=== PATIENT | female | born 1950 | race Caucasian/White ===

== ENCOUNTER 2021-06-03 09:50 | Day surgery (SDC) | payer OTHER, SELFPAY ==
[2021-05-28 11:02] VITALS: BMI 38.2
--- NOTE | 2021-05-29 08:13 | MHC.SHP ---
Pre-Procedural Eval Section A Date of Service: 05/29/21 The patient is an INPATIENT: No Changes since office visit: No Cold of Flu in the past 2 weeks, No New Medical Problems, No Changes in Medication and No Patient answered all questions The History & Physical has been completed within 30 days and I have reviewed it.: Yes Section B Chief Complaint: cataract Allergies: Allergies Allergy/AdvReac Type Severity Reaction Status Date / Time oxycodone [From Percocet] Allergy Unknown Nausea and Verified 05/28/21 10:56 Vomiting Plan Diagnosis/Plan: Unchanged I have reviewed the history and physical and performed a pertinent physical examination on my patient. No changes have occurred unless specified.
[2021-06-03 11:00] VITALS: BP 145/86; PULSE 90; RESP 18; TEMP 36.8; O2SAT 98
[2021-06-03] MEDS: Lactated Ringers 500 ML 20 ML IVCONT (11:27)
[2021-06-03] MEDS: Tetracaine HCl/PF 0.5% Oph Sol 4 ML DROPS 1 DROP EYE-RIGHT (11:27)
[2021-06-03] MEDS: Tropicamide 1 % Ophth Sol 3 ML BTL 1 DROP EYE-RIGHT ×3 (11:28→11:33)
[2021-06-03] MEDS: Phenylephrine HCL 2.5% Oph SoL 2 ML BOTTLE 1 DROP EYE-RIGHT ×3 (11:30→11:35)
--- NOTE | 2021-06-03 11:37 | P.CONAN_ITS ---
[facility] Active Problems Active Problems: All Active Problems (Updated 05/28/21 @ 10:58 by Krista sun RN) Cellulitis (Acute) Past Medical History Medical History Asthma DM type 2 (diabetes mellitus, type 2) HTN (hypertension) Hyperlipidemia Migraines PONV (postoperative nausea and vomiting) Family History Family history of problems with anesthesia: No Surgical History Surgical History History of open reduction and internal fixation (ORIF) procedure Hx of colonoscopy History of Problems with Anesthesia: No Social History Social History Are you a primary childcare director to a significant other at home: No Do you presently have visiting nurse or other home services: No Patient Tobacco Use Status: Former Tobacco user Quit Date: 20 yrs ago Tobacco use type: Cigarette Second Hand Smoke Exposure: No Use of substances other than those prescribed or required for medical reasons: No Have you been hit, kicked, punched, or otherwise hurt by someone within the past year? If so, by whom?: No Are you DNR?: No Advance Directives: No Advance Directives Information Provided: No Advance Directives on File: No Recently lost weight without trying: No Eating poorly because of decreased appetite: No Nutrition Risks: No Nutritional Risk Patient : No Meds Allergies Allergy/AdvReac Type Severity Reaction Status Date / Time erythromycin base Allergy Mild Nausea and Verified 06/03/21 11:19 Vomiting oxycodone [From Percocet] Allergy Unknown Nausea and Verified 05/28/21 10:56 Vomiting Active Medications: Current Medications Lactated Ringer's (Lr) 500 mls @ 20 mls/hr IVCONT .Q24H MABEL Last Admin: 06/03/21 11:27 Dose: 20 mls/hr Documented by: Povidone Iodine (Povidone Iodine 5 % Ophth Soln 30 Ml Bottle) 1 appl EYE-RIGHT PREOP PRN PRN Reason: Pre-Op Surgical Implant Prophy Home Medications Medication Instructions Recorded Confirmed Last Taken Type amitriptyline 10 mg tablet 10 mg PO BEDTIME 10/02/20 05/28/21 Unknown History amlodipine 5 mg tablet 5 mg PO BEDTIME 10/02/20 05/28/21 Unknown History aspirin 81 mg tablet,delayed 81 mg PO BEDTIME 10/02/20 05/28/21 06/02/21 History release (Adult Low Dose Aspirin) atorvastatin 10 mg tablet 10 mg PO DAILY 10/02/20 05/28/21 Unknown History fluticasone 100 mcg-salmeterol 50 1 ea INHALATION DAILY 10/02/20 05/28/21 06/03/21 History mcg/dose blistr powdr for inhalation glipizide 2.5 mg tablet, extended 2.5 mg PO 10/02/20 Unknown History release 24 hr lisinopril 20 1 tab PO DAILY 10/02/20 05/28/21 Unknown History mg-hydrochlorothiazide 12.5 mg tablet metformin 500 mg tablet 0 mg PO 10/02/20 Unknown History albuterol sulfate 90 mcg/actuation 2 puff INHALATION Q4-6H PRN 05/28/21 05/28/21 Unknown History aerosol inhaler fluticasone propionate 50 1 spray INTRANASAL DAILY 05/28/21 05/28/21 Unknown History mcg/actuation nasal spray,suspension Exam Exam Date and Time: June 03, 2021 1137 Height,Weight and Vital Signs: Height 5 ft 5 in Weight 104.326 kg Last Vital Signs Temp 98.3 F 06/03/21 11:00 Pulse 90 06/03/21 11:00 Resp 18 06/03/21 11:00 BP 145/86 H 06/03/21 11:00 Pulse Ox 98 06/03/21 11:00 Airway Mallampati Class: II TM Dist: >3cm Neck ROM: Limited Assessment and Plan Assessment Anesthesia Assessment: Anesthesia Plan Discussed and Chart Reviewed Final Anesthetic Review Family History of Problems with Anesthesia: No History of Problems with Anesthesia: No NPO: Yes ASA Class: III Final Preanesthetic Review: No Changes in Pt Med Stat, Meds/Allgs Chart Reviewed, Consent Obtained/Reviewed and Anes Risks/Benef Reviewed Patient Risk: Intermediate Procedure Risk: Low Assessment/Block/Sedation in SS: Assess/Block/Sedation-SS Anesthetic Plan Anesthetic Plan: MAC: Disposition: Standard PACU
[2021-06-03 11:46] LABS: Glucose, Whole Blood 158 mg/dL (60-115)
--- NOTE | 2021-06-03 12:11 | HO.PNOPHT ---
Ophthalmology Procedure Procedure Date of Service: 06/03/21 Ophthalmology Viscoelastic: Healon Duet Dual Pack Pro Ophthalmology Lenses: TECNIS [id number] (18.5) Procedure Notes: PREOPERATIVE DIAGNOSIS: Decreased visual acuity right eye secondary to cataract POSTOPERATIVE DIAGNOSIS: Same PROCEDURE: Right cataract extraction with intraocular lens insertion SURGEON: Eduardo Au M.D. ANESTHESIA: Topical/MAC ESTIMATED BLOOD LOSS: None COMPLICATIONS: None After obtaining informed consent, the patient was brought to the operating room suite and placed in the supine position. After adequate sedation per anesthesia, topical drops of Tetracaine were given to the right eye. The eye was then prepped and draped in the usual sterile fashion. The operating room microscope was then positioned over the operative eye and a lid speculum placed. A paracentesis was created. Viscoelastic was then instilled into the anterior chamber. A three plane incision was then created temporally, utilizing a 2.85 mm keratome. Capsulotomy forceps were then utilized to create a circular tear capsulotomy. Hydrodissection and hydrodelineation were carried out until adequate mobilization of the nucleus occurred. Phacoemulsification was then utilized to remove the dense central nucleus followed by removal of the cortical material utilizing the automated aspiration irrigation unit. Viscoelastic was instilled into the posterior capsular bag followed by placement of a posterior chamber intraocular lens without difficulty. The residual Viscoelastic was then removed utilizing the automated IA machine. The wound was checked and found to be watertight. The patient tolerated the procedure well and the lid speculum was removed. Intracameral injection of Vigamox 0.1 mL followed by a subtenon injection of Kenalog-40 0.2 mL were administered. The patient will be seen in the a.m.
[2021-06-03] MEDS: ondansetron HCL 4 MG/2 ML VIAL IVPUSH (12:37)
[2021-06-03 12:38] VITALS: BP 150/86; PULSE 90; RESP 20; TEMP 36.3; O2SAT 98
[2021-06-03 13:33] VITALS: BP 129/72; PULSE 81; RESP 20; O2SAT 98
[2021-06-03 14:21] VITALS: BP 124/68; PULSE 80; RESP 18; O2SAT 99
[2021-06-03 15:21] VITALS: BP 135/86; PULSE 82; RESP 18; TEMP 36.9; O2SAT 96
== END 2021-06-03 15:55 | disposition home or self-care (01) ==
PROVIDERS: PCP Family Medicine; Visit Provider Ophthalmology
PROC: (CPT 66985; principal; 2021-06-03 12:40)
DX: H25.11 Age-related nuclear cataract, right eye (principal); H52.4 Presbyopia; I10 Essential (primary) hypertension; E11.9 Type 2 diabetes mellitus without complications; J45.909 Unspecified asthma, uncomplicated; Z79.51 Long term (current) use of inhaled steroids; Z79.82 Long term (current) use of aspirin; Z79.84 Long term (current) use of oral hypoglycemic drugs; Z79.899 Other long term (current) drug therapy; Z87.891 Personal history of nicotine dependence
CPT/HCPCS: 66984; 82947; J2405; J2550; J3010; J3300; V2632

== ENCOUNTER 2021-06-17 07:15 | Day surgery (SDC) | payer OTHER, SELFPAY ==
[2021-05-28 11:16] VITALS: BMI 38.2
--- NOTE | 2021-06-12 12:57 | MHC.SHP ---
Pre-Procedural Eval Section A Date of Service: 06/12/21 The patient is an INPATIENT: No Changes since office visit: No Cold of Flu in the past 2 weeks, No New Medical Problems, No Changes in Medication and No Patient answered all questions The History & Physical has been completed within 30 days and I have reviewed it.: Yes Section B Chief Complaint: cataract Allergies: Allergies Allergy/AdvReac Type Severity Reaction Status Date / Time erythromycin base Allergy Mild Nausea and Verified 06/03/21 11:19 Vomiting oxycodone [From Percocet] Allergy Unknown Nausea and Verified 05/28/21 10:56 Vomiting Plan Diagnosis/Plan: Unchanged I have reviewed the history and physical and performed a pertinent physical examination on my patient. No changes have occurred unless specified.
--- NOTE | 2021-06-14 09:43 | HO.ANESPROP2 ---
Documented by User: Bettina Hamilton NP 06/14/21 10:07 HPI - Anesthesia Eval Consult details Narrative: 70yo F for Left Cataract Extraction IOL Insertion PCP cleared Right eye 06/03/21 with MAC: Fent 50 PMFSH Active Problems Active Problems: All Active Problems (Updated 05/28/21 @ 10:58 by Krista Ansari RN) Cellulitis (Acute) Past Medical History Medical History Asthma DM type 2 (diabetes mellitus, type 2) HTN (hypertension) Hyperlipidemia Migraines PONV (postoperative nausea and vomiting) Family History Family history of problems with anesthesia: No Surgical History Surgical History History of open reduction and internal fixation (ORIF) procedure Hx of colonoscopy History of Problems with Anesthesia: No Social History Social History Are you a primary transitional care nurse to a significant other at home: No Do you presently have visiting nurse or other home services: No Patient Tobacco Use Status: Former Tobacco user Quit Date: 20 yrs ago Tobacco use type: Cigarette Second Hand Smoke Exposure: No Use of substances other than those prescribed or required for medical reasons: No Have you been hit, kicked, punched, or otherwise hurt by someone within the past year? If so, by whom?: No Are you DNR?: No Advance Directives: No Advance Directives Information Provided: No Advance Directives on File: No Recently lost weight without trying: No Eating poorly because of decreased appetite: No Nutrition Risks: No Nutritional Risk Meds Allergies Allergy/AdvReac Type Severity Reaction Status Date / Time erythromycin base Allergy Mild Nausea and Verified 06/03/21 11:19 Vomiting oxycodone [From Percocet] Allergy Unknown Nausea and Verified 05/28/21 10:56 Vomiting Home Medications Medication Instructions Recorded Confirmed Last Taken Type amitriptyline 10 mg tablet 10 mg PO BEDTIME 10/02/20 05/28/21 Unknown History amlodipine 5 mg tablet 5 mg PO BEDTIME 10/02/20 05/28/21 Unknown History aspirin 81 mg tablet,delayed 81 mg PO BEDTIME 10/02/20 05/28/21 06/02/21 History release (Adult Low Dose Aspirin) atorvastatin 10 mg tablet 10 mg PO DAILY 10/02/20 05/28/21 Unknown History fluticasone 100 mcg-salmeterol 50 1 ea INHALATION DAILY 10/02/20 05/28/21 06/03/21 History mcg/dose blistr powdr for inhalation glipizide 2.5 mg tablet, extended 2.5 mg PO 10/02/20 Unknown History release 24 hr lisinopril 20 1 tab PO DAILY 10/02/20 05/28/21 Unknown History mg-hydrochlorothiazide 12.5 mg tablet metformin 500 mg tablet 0 mg PO 10/02/20 Unknown History albuterol sulfate 90 mcg/actuation 2 puff INHALATION Q4-6H PRN 05/28/21 05/28/21 Unknown History aerosol inhaler fluticasone propionate 50 1 spray INTRANASAL DAILY 05/28/21 05/28/21 Unknown History mcg/actuation nasal spray,suspension Exam Exam Date and Time: June 14, 2021 0943 Height,Weight and Vital Signs: Height 5 ft 5 in Weight 104.326 kg Assessment and Plan Assessment Anesthesia Assessment: Chart Reviewed Final Anesthetic Review Family History of Problems with Anesthesia: No History of Problems with Anesthesia: No Documented by User: Doc Garcia MD 06/17/21 07:50 [facility] Past Medical History Medical History Asthma DM type 2 (diabetes mellitus, type 2) HTN (hypertension) Hyperlipidemia Migraines PONV (postoperative nausea and vomiting) Surgical History Surgical History History of open reduction and internal fixation (ORIF) procedure Hx of colonoscopy Social History Social History Are you a primary transitional care nurse to a significant other at home: No Do you presently have visiting nurse or other home services: No Patient Tobacco Use Status: Former Tobacco user Quit Date: 20 yrs ago Tobacco use type: Cigarette Second Hand Smoke Exposure: No Use of substances other than those prescribed or required for medical reasons: No Have you been hit, kicked, punched, or otherwise hurt by someone within the past year? If so, by whom?: No Are you DNR?: No Advance Directives: No Advance Directives Information Provided: No Advance Directives on File: No Recently lost weight without trying: No Eating poorly because of decreased appetite: No Nutrition Risks: No Nutritional Risk Meds Allergies Allergy/AdvReac Type Severity Reaction Status Date / Time erythromycin base Allergy Mild Nausea and Verified 06/03/21 11:19 Vomiting oxycodone [From Percocet] Allergy Unknown Nausea and Verified 05/28/21 10:56 Vomiting Home Medications Medication Instructions Recorded Confirmed Last Taken Type amitriptyline 10 mg tablet 10 mg PO BEDTIME 10/02/20 05/28/21 Unknown History amlodipine 5 mg tablet 5 mg PO BEDTIME 10/02/20 05/28/21 Unknown History aspirin 81 mg tablet,delayed 81 mg PO BEDTIME 10/02/20 05/28/21 06/02/21 History release (Adult Low Dose Aspirin) atorvastatin 10 mg tablet 10 mg PO DAILY 10/02/20 05/28/21 Unknown History fluticasone 100 mcg-salmeterol 50 1 ea INHALATION DAILY 10/02/20 05/28/21 06/03/21 History mcg/dose blistr powdr for inhalation glipizide 2.5 mg tablet, extended 2.5 mg PO 10/02/20 Unknown History release 24 hr lisinopril 20 1 tab PO DAILY 10/02/20 05/28/21 Unknown History mg-hydrochlorothiazide 12.5 mg tablet metformin 500 mg tablet 0 mg PO 10/02/20 Unknown History albuterol sulfate 90 mcg/actuation 2 puff INHALATION Q4-6H PRN 05/28/21 05/28/21 Unknown History aerosol inhaler fluticasone propionate 50 1 spray INTRANASAL DAILY 05/28/21 05/28/21 Unknown History mcg/actuation nasal spray,suspension Exam Airway Mallampati Class: III TM Dist: >3cm Neck ROM: Full Loose/Missing/Broken Teeth: Yes (lower temporary cemented in) Heart: [id number] Lungs: cta b/l Assessment and Plan Final Anesthetic Review NPO: Yes ASA Class: III Final Preanesthetic Review: No Changes in Pt Med Stat, Meds/Allgs Chart Reviewed, Consent Obtained/Reviewed and Anes Risks/Benef Reviewed Patient Risk: Intermediate Procedure Risk: Low Assessment/Block/Sedation in SS: Assess/Block/Sedation-SS Anesthetic Plan Anesthetic Plan: MAC: and Agree w/ Assess. and Plan Disposition: Standard PACU
[2021-06-17 07:41] VITALS: BP 130/95; PULSE 90; RESP 18; TEMP 36.1; O2SAT 99
[2021-06-17 08:00] LABS: Glucose, Whole Blood 181 mg/dL (60-115)
[2021-06-17] MEDS: Tetracaine HCl/PF 0.5% Oph Sol 4 ML DROPS 1 DROP EYE-LEFT (08:00)
[2021-06-17] MEDS: Lactated Ringers 500 ML 50 ML IV (08:00)
[2021-06-17] MEDS: Tropicamide 1 % Ophth Sol 3 ML BTL 1 DROP EYE-LEFT ×3 (08:02→08:08)
[2021-06-17] MEDS: Phenylephrine HCL 2.5% Oph SoL 2 ML BOTTLE 1 DROP EYE-LEFT ×3 (08:04→08:10)
--- NOTE | 2021-06-17 08:40 | HO.PNOPHT ---
Ophthalmology Procedure Procedure Date of Service: 06/17/21 Ophthalmology Viscoelastic: Healon Duet Dual Pack Pro Ophthalmology Lenses: TECSELAM [id number] (18) Procedure Notes: PREOPERATIVE DIAGNOSIS: Decreased visual acuity left eye secondary to cataract POSTOPERATIVE DIAGNOSIS: Same PROCEDURE: Left cataract extraction with intraocular lens insertion SURGEON: Eduardo Au M.D. ANESTHESIA: Topical/MAC ESTIMATED BLOOD LOSS: None COMPLICATIONS: None After obtaining informed consent, the patient was brought to the operation room suite and placed in the supine position. After adequate sedation per anesthesia, topical drops of Tetracaine were given to the left eye. The eye was then prepped and draped in the usual sterile fashion. The operating room microscope was then positioned over the operative eye and a lid speculum placed. A paracentesis was created. Viscoelastic was then instilled into the anterior chamber. A three plane incision was then created temporally, utilizing a 2.85 mm keratome. Capsulotomy forceps were then utilized to create a circular tear capsulotomy. Hydrodissection and hydrodelineation were carried out until adequate mobilization of the nucleus occurred. Phacoemulsification was then utilized to remove the dense central nucleus followed by removal of the cortical material utilizing the automated aspiration irrigation unit. Viscoat elastic was instilled into the posterior capsular bag followed by placement of a posterior chamber intraocular lens without difficulty. The residual Viscoat elastic was then removed utilizing the automated IA machine. The wound was check and found to be watertight. The patient tolerated the procedure well and the lid speculum was removed. Intracameral injection of Vigamox 0.1 mL followed by a subtenon injection of Kenalog-40 0.2 mL were administered. The patient will be seen in the a.m.
[2021-06-17 09:04] VITALS: BP 141/94; PULSE 91; RESP 16; TEMP 37; O2SAT 96
== END 2021-06-17 09:21 | disposition home or self-care (01) ==
PROVIDERS: PCP Family Medicine; Visit Provider Ophthalmology
PROC: (CPT 66985; principal; 2021-06-17 09:10)
DX: H25.12 Age-related nuclear cataract, left eye (principal); H52.4 Presbyopia; I10 Essential (primary) hypertension; E11.9 Type 2 diabetes mellitus without complications; J45.909 Unspecified asthma, uncomplicated; Z79.51 Long term (current) use of inhaled steroids; Z79.84 Long term (current) use of oral hypoglycemic drugs; Z79.82 Long term (current) use of aspirin; Z79.899 Other long term (current) drug therapy; Z87.891 Personal history of nicotine dependence
CPT/HCPCS: 66984; 82947; J2250; J3300; V2632

== ENCOUNTER 2024-03-04 10:58 | Outpatient (AMB) | payer MEDICARE, SELFPAY ==
[2024-03-04 12:00] VITALS: BP 128/80; PULSE 80; TEMP 36.6; O2SAT 98; BMI 39.1
--- NOTE | 2024-03-04 12:00 | AM.OFFWIN_ITS ---
Intake Vital Signs 03/04/24 12:00 Height 5 ft 5 in Weight 235 lb BMI 39.1 BP 128/80 Blood Pressure Location Rt brachial Position Sitting Pulse 80 Pulse Source Pulse Oximeter Temp 98 F Temp Source Oral Pulse Oximetry (%) 98 Intake Visit Reasons: EP lft foot/toe swollen cellulitis??? Intake Note: pt is here for left foot and toe swelling, possible cellulitis Patient Tobacco Use Status: Former Tobacco user Allergies erythromycin base Allergy (Mild, Verified 03/04/24 12:01) Nausea and Vomiting oxycodone [From Percocet] Allergy (Unknown, Verified 03/04/24 12:01) Nausea and Vomiting Do you need a note to return to daycare/school/sports/work: No HPI HPI Comments History of Present Illness Details 73 y/o female patient who presents to [facility] [place] in clinic with c/o bilateral lower extremity edema with redness. Reports the left leg more swollen and red compared to right leg. Reports noticing the redness ~ 1 day ago. [facility] Medical History Asthma DM type 2 (diabetes mellitus, type 2) HTN (hypertension) Hyperlipidemia Migraines PONV (postoperative nausea and vomiting) Surgical History History of open reduction and internal fixation (ORIF) procedure Hx of colonoscopy Social History Are you a primary healthcare insurance sales agent to a significant other at home: No Do you presently have visiting nurse or other home services: No Patient Tobacco Use Status: Former Tobacco user Tobacco use type: Cigarette Second Hand Smoke Exposure: No Review of Systems Const All systems reviewed & are unremarkable except as noted in HPI and below Physical Exam Vital Signs: Last Vital Signs Temp 98 F 03/04/24 12:00 Pulse 80 03/04/24 12:00 BP 128/80 03/04/24 12:00 Pulse Ox 98 03/04/24 12:00 BMI result Body Mass Index 39.1 Const General: comfortable and no acute distress Orientation/consciousness: patient oriented x3 Skin General skin exam: dry skin Lesions: no lesions Rashes: no rashes Neuro General: patient oriented x3, gait normal and moves all extremities Extrem Right lower extremity: edema and lower leg Details: erythema (left lower foot) Location: of the distal lower leg, pitting edema Details: 1+ and warmth Left lower extremity: edema and lower leg Details: erythema, tenderness, pitting edema Details: 1+ and warmth Psych Speech and movement: Normal speech and movement present Assessment & Plan Assessment & Plan (1) Peripheral edema: Code(s): R60.0 - Localized edema Plan: Ordered Keflex F/U with PCP regarding Edema. Medications: New cephalexin 500 mg PO BID 7 days 14 caps 0RF R60.0 - Localized edema Coding Level of Care Code Est Pt Level 3 (36364) Diagnoses Peripheral edema R60.0 Time Spent (min) 15
== END 2024-03-04 12:39 | disposition home or self-care (01) ==
PROVIDERS: PCP Family Medicine; Visit Provider Nurse Practitioner Family
DX: R60.0 Localized edema (principal)
CPT/HCPCS: 99213

== ENCOUNTER 2024-03-07 13:15 | Inpatient (IN) | payer MEDICARE, SELFPAY ==
--- NOTE | ~2024-03-07 | XR_ITS ---
EXAMINATION: XR FOOT, LEFT CLINICAL INFORMATION: Pain and swelling status-post fall COMPARISON: None available. TECHNIQUE: AP, lateral, and oblique views of the left foot. FINDINGS: There is bony demineralization. No fracture, dislocation or left ankle joint effusion is seen. There are degenerative changes of the dorsal midfoot. Boehler's angle is normal. There are small posterior and moderate plantar calcaneal spurs. Orthopedic plate and screws are applied to the lateral malleolus. There is soft tissue swelling of the ankle, most pronounced laterally. XR/XR foot LT min 3V IMPRESSION: 1. No acute fracture, dislocation or left ankle joint effusion is seen. 2. There is generalized soft tissue swelling, most pronounced laterally. 3. Orthopedic hardware is applied to the fibula.
--- NOTE | ~2024-03-07 | US_ITS ---
EXAMINATION: US VENOUS ULTRASOUND WITH DOPPLER LOWER EXTREMITY, LEFT CLINICAL INFORMATION: Edema, rule out DVT COMPARISON: None available. TECHNIQUE: Ultrasound of the deep veins is performed from the hip to the calf with compression sonography and color and pulse Doppler assessment. Spectral analysis with color-flow imaging is performed. FINDINGS: There is normal venous compression and respiratory variation and augmented flow. The visualized common femoral vein, superficial femoral vein, profunda femoral vein, popliteal vein, and the trifurcation region shows no evidence of deep venous thrombosis. There is no significant popliteal fossa cyst. If the patient's symptoms persist, followup ultrasound in 5 days 7 days might be of value to exclude proximal propagation from a non-visualized calf vein. US/US venous duplex LE LT IMPRESSION: No DVT demonstrated in the left lower extremity.
[2024-03-07 13:57] VITALS: BP 147/69; PULSE 113; RESP 18; TEMP 37.1; O2SAT 96; BMI 39.4
[2024-03-07 14:13] LABS: MANUAL DIFF FLAG NO
[2024-03-07 14:25] LABS: Basophils Absolute Auto 0.1 X10*3/uL (0.0-0.2); Basophils Percent Auto 1.1 % (0-2); Eosinophils Absolute Auto 0.2 X10*3/uL (0.0-0.4); Eosinophils Percent Auto 2.2 % (0-4); Hematocrit 38.5 % (37.0-47.0); Hemoglobin 13.2 g/dl (12.0-16.0); Imm Gran Abs Auto 0.02 X10*3/uL (0.00-0.03); Imm Gran Pct Auto 0.2 % (0.0-0.4); Lymphocytes Absolute Auto 2.8 X10*3/uL (1.2-4.9); Lymphocytes Percent Auto 29.4 % (20-40); Mean Corpuscular HGB Conc 34.3 g/dl (31.0-35.0); Mean Corpuscular Hemoglobin 28.1 pg (27.0-33.0); Mean Corpuscular Volume 82.1 fL (80.0-98.0); Mean Platelet Volume 9.8 fL (9.4-12.3); Monocytes Percent Auto 10.5 % (2-11); Neutrophils Absolute Auto 5.3 x10*3/uL (2.0-8.3); Neutrophils Percent Auto 56.6 % (45-73); Platelet Count 275 X10*3/uL (160-400); Red Blood Count 4.69 X10*6/uL (4.20-5.50); Red Cell Distribution Width 13.3 % (11.0-16.0); White Blood Count 9.4 X10*3/uL (4.8-10.8)
[2024-03-07 14:31] LABS: Alanine Aminotransferase 33 U/L (0-31); Albumin Level 4.3 g/dL (3.5-5.0); Alkaline Phosphatase 68 U/L (39-117); Anion Gap 17 (12-20); Aspartate Amino Transferase 20 U/L (5-31); Bilirubin Total 0.3 mg/dL (0.0-1.0); Blood Urea Nitrogen 18 mg/dL (9-16); Calcium 9.7 mg/dL (8.4-10.2); Carbon Dioxide 23 mmol/L (22-29); Chloride 103 mmol/L (96-108); Creatinine Clr Calc Pharmacy 64.1; Estimated Glomerular Filt Rate 56; Glucose Random 281 mg/dL (60-115); Potassium 4.3 mmol/L (3.3-5.1); Sodium 139 mmol/L (135-145); Total Protein 7.1 g/dL (6.5-8.0)
[2024-03-07 14:49] LABS: Lactic Acid 3.9 mmol/L (0.5-2.0)
[2024-03-07 16:11] LABS: Reflex Lactate? Lactic Acid Added
--- NOTE | 2024-03-07 19:25 | PC.NURSE ---
pt called to come back to the ed due to Lactic acid 3.9 hr 113 with a infected toe. no answer message left to call back and or return back to the ed.
--- NOTE | 2024-03-07 19:44 | PC.NURSE ---
pt called back and she will return to the ed tonight. pt instructed to let the reg know she has arrived.
--- NOTE | 2024-03-07 21:20 | ED_ITS ---
HPI - General Adult General Chief complaint: General Medical Stated complaint: L toe red/swollen Time Seen by Provider: 03/07/24 21:15 Source: patient Mode of arrival: ambulatory Limitations: no limitations History of Present Illness ED Provider: krsital HOLMAN narrative: Patient diabetic came here for left great toe swelling and redness for last 4 days after she hit the toe in the tub, on Keflex started 3 days ago for last 2 days redness has spread o the lower part of the leg with warmth feeling patient with diabetic with HbA1c about 9.0 on oral hypoglycemic no open wound no fever no chills patient otherwise feels normal does have history of recurrent cellulitis Related Data Home Medications ?Medication ?Instructions ?Recorded ?Confirmed amitriptyline 10 mg tablet 10 mg PO BEDTIME 10/02/20 05/28/21 amlodipine 5 mg tablet 5 mg PO BEDTIME 10/02/20 05/28/21 aspirin 81 mg tablet,delayed 81 mg PO BEDTIME 10/02/20 05/28/21 release (Adult Low Dose Aspirin) atorvastatin 10 mg tablet 10 mg PO DAILY 10/02/20 05/28/21 fluticasone 100 mcg-salmeterol 50 1 ea inhalation DAILY 10/02/20 05/28/21 mcg/dose blistr powdr for inhalation lisinopril 20 1 tab PO DAILY 10/02/20 05/28/21 mg-hydrochlorothiazide 12.5 mg tablet metformin 500 mg tablet 0 mg PO 10/02/20 albuterol sulfate 90 mcg/actuation 2 puff inhalation Q4-6H PRN 05/28/21 05/28/21 aerosol inhaler Wheezing fluticasone propionate 50 1 spray intranasal DAILY 05/28/21 05/28/21 mcg/actuation nasal spray,suspension glipizide 5 mg tablet, extended mg PO BID 03/04/24 release 24 hr Previous Rx's ?Medication ?Instructions ?Recorded cephalexin 500 mg capsule 500 mg PO BID 7 days #14 caps 03/04/24 Allergies Allergy/AdvReac Type Severity Reaction Status Date / Time erythromycin base Allergy Mild Nausea and Verified 03/07/24 14:00 Vomiting oxycodone [From Percocet] Allergy Unknown Nausea and Verified 03/07/24 14:00 Vomiting Review of Systems 2 Review of Systems: Yes all other systems are reviewed and are negative PMFSH Past Medical History Medical History PONV (postoperative nausea and vomiting) DM type 2 (diabetes mellitus, type 2) Migraines Asthma HTN (hypertension) Hyperlipidemia Surgical History Hx of colonoscopy History of open reduction and internal fixation (ORIF) procedure Social History Social History Are you a primary primary care pediatrician to a significant other at home: No Do you presently have visiting nurse or other home services: No Alcohol intake: former Patient Tobacco Use Status: Former Tobacco user Tobacco use type: Cigarette Smoked in Last 30 Days: No Second Hand Smoke Exposure: No Use of substances other than those prescribed or required for medical reasons: No Advance Directives: No Advance Directives Information Provided: No Do you have a plan to hurt others: No Plan Physical Exam ED Vital Signs: Vital Signs - 24 hr 03/07/24 13:57 03/07/24 22:14 Temperature 98.7 F 98.8 F Pulse Rate 113 H 96 Respiratory Rate 18 17 Blood Pressure 147/69 H 137/82 Pulse Oximetry 96 98 Oxygen Delivery Method Room Air Room Air BMI result Body Mass Index 39.4 Appearance: Alert. Oriented X3. No acute distress. Eyes: PERRLA, No Nystagmus ENT: Pharynx normal. Oral Mucosa moist Neck: Normal inspection. Neck supple. CVS: Normal heart rate and rhythm. Pulses normal. Respiratory: No respiratory distress. Equal air entry bilateral, no wheezing/rales/rhonchi Abdomen: Soft and nontender. Bowel sounds are present, no mass palpable, no CVA tenderness Skin: Skin warm and dry. Normal skin color. Normal skin turgor. Extremities: No lower extremity edema. No calf tenderness redness of the left 2nd toe with swelling redness spreading to lower part of the leg as in the picture Neuro: Oriented X 3. No motor deficit. No sensory deficit. Medications Administered Generic Name Dose Route Start Last Admin Trade Name Freq PRN Reason Stop Dose Admin Ceftriaxone Sodium 1 gm/ 50 mls @ 100 mls/hr 03/08/24 00:15 03/08/24 02:35 Sodium Chloride IV Infused 2200 MABEL Infusion Discontinued Medications Generic Name Dose Route Start Last Admin Trade Name Freq PRN Reason Stop Dose Admin Amitriptyline HCl 10 mg 03/08/24 00:03 03/08/24 00:28 Amitriptyline Hcl 10 Mg Tablet PO 03/08/24 00:04 Not Given ONCE STA Amlodipine Besylate 5 mg 03/08/24 00:03 03/08/24 00:27 Amlodipine Besylate 5 Mg Tablet PO 03/08/24 00:04 5 mg ONCE STA Administration Protocol Aspirin 81 mg 03/08/24 00:03 03/08/24 00:28 Aspirin Enteric Coated 81 Mg Tablet. PO 03/08/24 00:04 81 mg ONCE STA Administration Atorvastatin Calcium 10 mg 03/08/24 00:03 03/08/24 00:28 Atorvastatin Calcium 10 Mg Tablet PO 03/08/24 00:04 10 mg ONCE STA Administration Sodium Chloride 1,000 mls @ 999 mls/hr 03/07/24 22:04 03/07/24 23:50 Ns IV 03/07/24 23:04 Infused .Q1H1M ONE Infusion Vancomycin HCl 1,000 mg/ 535 mls @ 267.5 mls/hr 03/07/24 22:04 03/08/24 00:45 Vancomycin HCl 750 mg/ Sodium IV 03/08/24 00:03 Infused Chloride ONCE ONE Infusion Sodium Chloride 1,000 mls @ 999 mls/hr 03/08/24 00:21 03/08/24 03:03 Ns IV 03/08/24 01:21 Infused .Q1H1M STA Infusion Medical Decision Making Medical Decision Making [facility] Narrative: 22;30Patient diabetic with cellulitis of left 2nd toe spreading to the leg already on cephalexin normal WBC count but elevated lactic acid which could be because of metformin/cellulitis will start patient on IV fluids and IV vancomycin patient clinically not septic elevated lactic acid likely mostly from metformin type B Differential Diagnosis Differential Diagnoses: The differential diagnosis associated with the presentation includes Cellulitis/deeper infection/lactic acidosis Admission/Observation Consideration of admission/observation: Escalation of care including admission/observation considered Consult Healthcare Provider Management of the patient was discussed with: Hospitalist Lab Data [facility] Lab Attestation statement: I reviewed the patient's lab results. 03/08/24 04:26 03/08/24 04:26 Labs: Lab Results 03/07/24 03/07/24 Range/Units 14:08 21:16 WBC 9.4 (4.8-10.8) X10*3/uL RBC 4.69 (4.20-5.50) X10*6/uL Hgb 13.2 (12.0-16.0) g/dl Hct 38.5 (37.0-47.0) % MCV 82.1 (80.0-98.0) fL MCH 28.1 (27.0-33.0) pg MCHC 34.3 (31.0-35.0) g/dl RDW 13.3 (11.0-16.0) % Plt Count 275 (160-400) X10*3/uL MPV 9.8 (9.4-12.3) fL Immature Gran % (Auto) 0.2 (0.0-0.4) % Neut % (Auto) 56.6 (45-73) % Lymph % (Auto) 29.4 (20-40) % [place] % (Auto) 10.5 (2-11) % Eos % (Auto) 2.2 (0-4) % Baso % (Auto) 1.1 (0-2) % Lymph # (Auto) 2.8 (1.2-4.9) X10*3/uL [place] # (Auto) 1.0 (0.1-1.2) X10*3/uL Eos # (Auto) 0.2 (0.0-0.4) X10*3/uL Baso # (Auto) 0.1 (0.0-0.2) X10*3/uL Abs Immat Gran (auto) 0.02 (0.00-0.03) X10*3/uL Absolute Neuts (auto) 5.3 (2.0-8.3) x10*3/uL Absolute Nucleated RBC 0.000 (0.0-0.012) X10*3/uL Nucleated RBC % (auto) 0.0 (0.0-0.2) /100WBC Sodium 139 (135-145) mmol/L Potassium 4.3 (3.3-5.1) mmol/L Chloride 103 (96-108) mmol/L Carbon Dioxide 23 (22-29) mmol/L Anion Gap 17 (12-20) BUN 18 H (9-16) mg/dL Creatinine 0.98 (0.5-1.4) mg/dL Estim Creat Clear Calc 64.1 Estimated GFR 56 Random Glucose 281 H (60-115) mg/dL Lactic Acid 3.9 H* (0.5-2.0) mmol/L Lactic Acid F/U @ 2Hr 4.2 H* (0.5-2.0) mmol/L Calcium 9.7 (8.4-10.2) mg/dL Total Bilirubin 0.3 (0.0-1.0) mg/dL AST 20 (5-31) U/L ALT 33 H (0-31) U/L Alkaline Phosphatase 68 (39-117) U/L Total Protein 7.1 (6.5-8.0) g/dL Albumin 4.3 (3.5-5.0) g/dL Discharge Plan Discharge Clinical Impression: Cellulitis Qualifiers: Site of cellulitis: extremity Site of cellulitis of extremity: lower extremity Laterality: left Qualified Code(s): L03.116 - Cellulitis of left lower limb Patient Disposition: Admitted As Inpatient
[2024-03-07 21:50] LABS: ~Lactic Acid-LAB USE ONLY 4.2 mmol/L (0.5-2.0)
[2024-03-07 22:14] VITALS: BP 137/82; PULSE 96; RESP 17; TEMP 37.1; O2SAT 98
[2024-03-07] MEDS: 0.9 % Sodium Chloride 1,000 ML 999 ML IV (22:44)
[2024-03-07] MEDS: vancomycin HCL 1,000 MG, vancomycin HCL 750 MG in 0.9 % Sodium Chloride 500 ML 267.5 MG IV (22:44)
[2024-03-07 23:18] LABS: Reflex Lactate? 2 Y
--- NOTE | 2024-03-08 00:15 | P.HPHOSP_ITS ---
History of Present Illness Date of Service: 03/08/24 Attending physician on admission: Dana Shelton Chief Complaint: Left leg swelling Harriett Bear is a 73 years old woman with past medical history significant for type 2 diabetes on metformin + glipizide, essential hypertension and hyperlipidemia presents to the emergency department complaining of worsening swelling and redness to the left 2nd toe and leg since . She denied fever, nausea or vomiting. She did not report any headache, chest pain, shortness on breath or dizziness. She denied hurting her left 2nd toe or any trauma to the left leg. She has been taking Keflex (5 pills so far) without improvement of symptoms. In the ED, she was found to have normal vital signs. Blood workup showed no leukocytosis. Lactic acid is elevatedn 3.9 --> 4.2. There are no electrolyte imbalances. Renal function is adequate and LFTs are unremarkable. Left foot x- ray showed no acute fracture, dislocation or left ankle joint effusion. ED tx: NS 1 L bolus, vancomycin 1750 g IV Review of Systems 2 Review of Systems: All 12 systems were reviewed and normal except as noted in HPI. [facility] Medical History PONV (postoperative nausea and vomiting) DM type 2 (diabetes mellitus, type 2) Migraines Asthma HTN (hypertension) Hyperlipidemia Surgical History Hx of colonoscopy History of open reduction and internal fixation (ORIF) procedure Social History Are you a primary menagerie caretaker to a significant other at home: No Do you presently have visiting nurse or other home services: No Patient Tobacco Use Status: Former Tobacco user Tobacco use type: Cigarette Second Hand Smoke Exposure: No Advance Directives: No Advance Directives Information Provided: No Do you have a plan to hurt others: No Plan Meds Allergies Allergy/AdvReac Type Severity Reaction Status Date / Time erythromycin base Allergy Mild Nausea and Verified 03/07/24 14:00 Vomiting oxycodone [From Percocet] Allergy Unknown Nausea and Verified 03/07/24 14:00 Vomiting Active Medications: Current Medications Acetaminophen (Acetaminophen 325 Mg Tablet) 975 mg PO Q6H PRN PRN Reason: Pain, Mild (Pain Scale 1-3), fever or headache Enoxaparin Sodium (Enoxaparin Sodium 40 Mg/0.4 Ml Syringe) 40 mg SUBCUT Q24H [facility] Pharmacy Consult (Consult Rx Vancomycin Dosing) 1 each MISCELLANE DAILY PRN PRN Reason: Consult order Sodium Chloride (0.9 % Sodium Chloride Flush 3 Ml Syringe) 3 ml IVFLUSH QSHIFT [facility] Home Medications ?Medication ?Instructions ?Recorded ?Confirmed ?Last Taken ?Type amitriptyline 10 mg tablet 10 mg PO BEDTIME 10/02/20 05/28/21 Unknown History amlodipine 5 mg tablet 5 mg PO BEDTIME 10/02/20 05/28/21 Unknown History aspirin 81 mg tablet,delayed 81 mg PO BEDTIME 10/02/20 05/28/21 06/02/21 History release (Adult Low Dose Aspirin) atorvastatin 10 mg tablet 10 mg PO DAILY 10/02/20 05/28/21 Unknown History fluticasone 100 mcg-salmeterol 50 1 ea inhalation DAILY 10/02/20 05/28/21 06/03/21 History mcg/dose blistr powdr for inhalation lisinopril 20 1 tab PO DAILY 10/02/20 05/28/21 Unknown History mg-hydrochlorothiazide 12.5 mg tablet metformin 500 mg tablet 0 mg PO 10/02/20 Unknown History albuterol sulfate 90 mcg/actuation 2 puff inhalation Q4-6H PRN 05/28/21 05/28/21 Unknown History aerosol inhaler Wheezing fluticasone propionate 50 1 spray intranasal DAILY 05/28/21 05/28/21 Unknown History mcg/actuation nasal spray,suspension glipizide 5 mg tablet, extended mg PO BID 03/04/24 Unknown History release 24 hr Physical Exam 2 Vital Signs and Narrative: Vital Signs: Last Vital Signs Temp 98.8 F 03/07/24 22:14 Pulse 96 03/07/24 22:14 Resp 17 03/07/24 22:14 BP 137/82 03/07/24 22:14 Pulse Ox 98 03/07/24 22:14 O2 Del Method Room Air 03/07/24 22:14 BMI result Body Mass Index 39.4 Constitutional - Awake and Alert, No apparent distress HEENT - Pupils equally round, EOMI Heart - S1S2, RRR, No edema Lungs - Normal lung expansion, Normal respiratory effort, No respiratory distress, CTA bilaterally Abdomen - non tenderness - No CVA tenderness Extremities - left foot: Left 2nd toe erythema and edema. Left leg: Edema, erythema and increased warmth. Musculoskeletal - Normal inspection, normal ROM Skin - Warm/Dry Neurological - Alert & oriented x3. No focal weakness grossly noted. Psychological - Appropriate affect Results Labs 03/07/24 14:08 03/07/24 14:08 Labs: Laboratory Results - last 24 hr 03/07/24 03/07/24 14:08 21:16 MCV 82.1 MCH 28.1 MCHC 34.3 RDW 13.3 Plt Count 275 MPV 9.8 Immature Gran % (Auto) 0.2 Neut % (Auto) 56.6 Lymph % (Auto) 29.4 [place] % (Auto) 10.5 Eos % (Auto) 2.2 Baso % (Auto) 1.1 Lymph # (Auto) 2.8 [place] # (Auto) 1.0 Eos # (Auto) 0.2 Baso # (Auto) 0.1 Abs Immat Gran (auto) 0.02 Absolute Neuts (auto) 5.3 Absolute Nucleated RBC 0.000 Nucleated RBC % (auto) 0.0 Anion Gap 17 Estim Creat Clear Calc 64.1 Estimated GFR 56 Random Glucose 281 H Lactic Acid 3.9 H* Lactic Acid F/U @ 2Hr 4.2 H* Calcium 9.7 Total Bilirubin 0.3 AST 20 ALT 33 H Alkaline Phosphatase 68 Total Protein 7.1 Albumin 4.3 Imaging Radiologist's Impressions: Impressions Foot X-Ray 03/07/24 21:28 IMPRESSION: 1. No acute fracture, dislocation or left ankle joint effusion is seen. 2. There is generalized soft tissue swelling, most pronounced laterally. 3. Orthopedic hardware is applied to the fibula. Assessment and Plan (1) Left leg cellulitis: Status: Acute (2) Lactic acidosis: Status: Acute Plan Harriett Bear is a 73 y/o woman admitted with: * Left 2nd toe and lower extremity cellulitis, failed outpatient treatment. Admit to hospitalist service. Continue empiric IV antibiotic therapy with ceftriaxone and vancomycin. * Lactic acidosis likely secondary to metformin use. No other criteria for sepsis or infection such as tachycardia, hypotension, fever or leukocytosis noted. Hold metformin. Continue to monitor lactic acid. * Type 2 diabetes mellitus. Continue glipizide. BG checks before meals at bedtime. Insulin sliding scale. * Essential hypertension. Continue Norvasc, lisinopril and hydrochlorothiazide. * Hyperlipidemia. Continue statin. * Asthma. Continue inhalers. * History of migraines. Continue amitriptyline. DVT prophylaxis: Lovenox Code status: Full Patient will need hospitalization for at least 2 midnights for left 2nd toe and lower extremity cellulitis management with IV antibiotics as the patient failed outpatient treatment. Quality Stroke Does the patient have a stroke diagnosis?: No VTE Prior VTE?: No VTE Risk Level:: Medical - moderate - high VTE Device Contraindication: Treatment Not Indicated VTE Drug Contraindication: N/A - Med Ordered
[2024-03-08 00:24] LABS: Cancel Lactic Acid Canceled
[2024-03-08 00:27] VITALS: BP 131/78
[2024-03-08] MEDS: amLODIPine Besylate 5 MG TABLET PO ×2 (00:27→20:18)
[2024-03-08] MEDS: Atorvastatin Calcium 10 MG TABLET PO ×2 (00:28→20:18)
[2024-03-08] MEDS: Aspirin Enteric Coated 81 MG TABLET.DR PO ×2 (00:28→20:18)
[2024-03-08] MEDS: 0.9 % Sodium Chloride 1,000 ML 999 ML IV (02:02)
[2024-03-08] MEDS: cefTRIAXone sodium 1 GM in 0.9 % Sodium Chloride 50 ML IV ×2 (02:03→21:21)
[2024-03-08 05:02] LABS: MANUAL DIFF FLAG NO
[2024-03-08 05:03] LABS: Basophils Absolute Auto 0.1 X10*3/uL (0.0-0.2); Basophils Percent Auto 0.6 % (0-2); Eosinophils Absolute Auto 0.2 X10*3/uL (0.0-0.4); Eosinophils Percent Auto 1.9 % (0-4); Hematocrit 32.9 % (37.0-47.0); Hemoglobin 11.3 g/dl (12.0-16.0); Imm Gran Abs Auto 0.03 X10*3/uL (0.00-0.03); Imm Gran Pct Auto 0.3 % (0.0-0.4); Lymphocytes Absolute Auto 3.3 X10*3/uL (1.2-4.9); Lymphocytes Percent Auto 35.5 % (20-40); Mean Corpuscular HGB Conc 34.3 g/dl (31.0-35.0); Mean Corpuscular Volume 81.6 fL (80.0-98.0); Mean Platelet Volume 9.9 fL (9.4-12.3); Monocytes Absolute Auto 1.1 X10*3/uL (0.1-1.2); Monocytes Percent Auto 11.3 % (2-11); Neutrophils Absolute Auto 4.7 x10*3/uL (2.0-8.3); Neutrophils Percent Auto 50.4 % (45-73); Platelet Count 221 X10*3/uL (160-400); Red Blood Count 4.03 X10*6/uL (4.20-5.50); Red Cell Distribution Width 13.4 % (11.0-16.0); White Blood Count 9.4 X10*3/uL (4.8-10.8)
[2024-03-08 05:23] LABS: Alanine Aminotransferase 27 U/L (0-31); Albumin Level 3.6 g/dL (3.5-5.0); Alkaline Phosphatase 57 U/L (39-117); Anion Gap 15 (12-20); Aspartate Amino Transferase 17 U/L (5-31); Bilirubin Total 0.3 mg/dL (0.0-1.0); Blood Urea Nitrogen 16 mg/dL (9-16); Calcium 8.6 mg/dL (8.4-10.2); Carbon Dioxide 22 mmol/L (22-29); Chloride 106 mmol/L (96-108); Creatinine Clr Calc Pharmacy 76.6; Estimated Glomerular Filt Rate > 60; Glucose Random 192 mg/dL (60-115); Potassium 3.8 mmol/L (3.3-5.1); Sodium 139 mmol/L (135-145)
--- NOTE | 2024-03-08 06:43 | PC.NURSE ---
Patient is alert and oriented x3, VSS. 20 G IV line in R AC, patient medicated per Oct.
[2024-03-08 06:44] VITALS: BP 141/88; PULSE 91; RESP 17; TEMP 36.8; O2SAT 95
--- NOTE | 2024-03-08 06:45 | PC.NURSE ---
Patient ambulated to the restroom with supervision, gait is slow, but steady. patient denies discomfort with urination.
[2024-03-08 07:32] LABS: Glucose, Whole Blood 180 mg/dL (60-115)
--- NOTE | 2024-03-08 08:14 | PHA.PROG ---
Admission Date/Time: March 08, 2024 00:06 Indication: skin and skin structure Weight in k.3 kg Adjusted body weight in Kg: Standard body weight in Kg: Obesity Dosing Indication % IBW: BMI 39.4 Serum Creatinine - Last 168 Hours 03/07/24 03/08/24 14:08 04:26 Creatinine 0.98 0.82 Estimated CrCl and GFR - Last 168 Hours 03/07/24 03/08/24 14:08 04:26 Estim Creat Clear Calc 64.1 76.6 Estimated GFR 56 > 60 Vancomycin Loading Dose: 1750 mg X1 Current Vancomycin Dosing Regimen: 1000 mg Q12h Vancomycin Monitoring using AUC goal of 400 - 600 range with trough as surrogate marker: 481 Date and Time for next Vancomycin Level to be drawn: 03/09 @0900 Pharmacist Comments on Vancomycin Plan: Renal function okay, will continue to monitor and adjust PRN Vancomycin dosing will take advantage of [employer] as a clinical decision support tool that uses Bayesian modeling to calculate individual patient's pharmacokinetic parameters and forecast the patient's drug concentration time course with the target goal AUC 24 range of 400 - 600 mg/L/hr.
[2024-03-08 08:47] VITALS: BP 129/78; PULSE 80; RESP 18; O2SAT 96
[2024-03-08] MEDS: 0.9 % Sodium Chloride Flush 3 ML SYRINGE IVFLUSH ×3 (08:50→23:36)
[2024-03-08] MEDS: Enoxaparin Sodium 40 MG/0.4 ML SYRINGE SUBCUT (09:01)
[2024-03-08] MEDS: Insulin Lispro 100 UNIT/ML 3 ML VIAL SUBCUT ×2 (09:02→20:18)
--- NOTE | 2024-03-08 09:40 | PHA.MEDREC ---
Pharmacy Consult ? Medication Reconciliation Pharmacy has completed the medication reconciliation. Confirmed medications with patient. she states she got prescribed cephalexin 500mg caps in the last week but ultimately the Dr told her to not take it since she is getting IV antibiotics.
--- NOTE | 2024-03-08 12:52 | MHC.CM.PN ---
IMM 03/08/24, Pt lives alone, she is independent, no home health services and she drove herself to hosp. She can have a family member transport her home if needed at DC. HCP discussed, she declined to complete one. PCP confirmed: Dr. Nielson. She does not use DME. DCP is home, self care, CM to follow for DC needs.
[2024-03-08 12:59] LABS: Glucose, Whole Blood 142 mg/dL (60-115)
--- NOTE | 2024-03-08 13:15 | P.EN_ITS ---
Event Note Date of Service: 03/08/24 Event Note: 73-year-old female with past medical history of type 2 diabetes mellitus on metformin/glipizide, hypertension, hyperlipidemia presented to ER due to left 2nd toe redness and swelling of 5 days' duration with extension to left lower extremity with no associated fever nausea vomiting or headache patient to Keflex with no improvement in symptoms in the emergency room noted to have acute leukocytosis with lactic acid 3.9, had no fevers normal WBC count admitted to [facility] with a diagnosis of left leg cellulitis, x-ray left foot showed no acute fractures. On examination left 2nd toe redness swelling with dry scaly skin, mild erythema and swelling left leg extending just below knee. Left 2nd toe and lower extremity cellulitis, failed outpatient treatment. Continue IV ceftriaxone and vancomycin. Keep leg elevated, blood cultures x2 pending Acute Lactic acidosis likely secondary to metformin use. No other criteria for sepsis such as tachycardia, hypotension, fever or leukocytosis noted. Hold metformin. Continue to monitor lactic acid. Type 2 diabetes mellitus. Hold metformin and glipizide continue insulin sliding scale and diabetic Essential hypertension. Continue Norvasc, lisinopril and hydrochlorothiazide. Hyperlipidemia. Continue statin. Asthma. Continue inhalers. History of migraines. Continue amitriptyline. DVT prophylaxis: Lovenox Code status: Full Patient will need hospitalization for at least 2 midnights for left 2nd toe and lower extremity cellulitis management with IV antibiotics as the patient failed outpatient treatment. Time Spent With Patient Time: Total time managing care of this patient today ____ minutes.
[2024-03-08] MEDS: vancomycin HCL 1,000 MG in 0.9 % Sodium Chloride 250 ML 270 MG IV ×2 (13:16→22:30)
[2024-03-08 14:06] LABS: Lactic Acid 1.2 mmol/L (0.5-2.0)
[2024-03-08 17:01] LABS: Glucose, Whole Blood 139 mg/dL (60-115)
[2024-03-08 17:58] VITALS: BP 145/82; PULSE 91; RESP 16; O2SAT 97
[2024-03-08 19:57] LABS: Glucose, Whole Blood 195 mg/dL (60-115)
[2024-03-08] MEDS: Amitriptyline HCl 10 MG TABLET 20 MG PO (20:18)
[2024-03-08 20:31] VITALS: BP 134/78; PULSE 86; RESP 19; TEMP 36.8; O2SAT 97
[2024-03-09 00:53] VITALS: BP 139/71; PULSE 85; RESP 18; TEMP 37; O2SAT 94
[2024-03-09 06:14] LABS: Creatinine Clr Calc Pharmacy 72.2; Estimated Glomerular Filt Rate > 60
[2024-03-09 07:37] LABS: Glucose, Whole Blood 202 mg/dL (60-115)
[2024-03-09] MEDS: Insulin Lispro 100 UNIT/ML 3 ML VIAL SUBCUT ×4 (08:12→20:27)
[2024-03-09] MEDS: 0.9 % Sodium Chloride Flush 3 ML SYRINGE IVFLUSH ×3 (08:14→22:07)
[2024-03-09] MEDS: Enoxaparin Sodium 40 MG/0.4 ML SYRINGE SUBCUT (08:15)
--- NOTE | 2024-03-09 09:22 | MHC.EDTECH ---
pt is a self was given personal hygiene and washed up
--- NOTE | 2024-03-09 09:23 | MHC.EDTECH ---
pt ate 100% breakfast
[2024-03-09 09:36] LABS: Vancomycin Random 14.6 mcg/mL (15-20)
--- NOTE | 2024-03-09 09:42 | HE.PHANOTE ---
Re: Aaron Patient's renal function has declined. Trough returned at 14.6. Continue current dose of 1,000 mg Q12H, with predicted AUC 509, predicted trough 17.7. Next trough 03/10 @ 2100.
[2024-03-09 11:18] LABS: Glucose, Whole Blood 189 mg/dL (60-115)
[2024-03-09] MEDS: vancomycin HCL 1,000 MG in 0.9 % Sodium Chloride 250 ML 270 MG IV ×2 (12:16→22:07)
--- NOTE | 2024-03-09 12:20 | HO.PM.IMPN ---
Subjective Subjective Date of Service: 03/09/24 Interval History: Being followed for left lower extremity cellulitis. Feeling better denies fever, no chills, no headache, no dizziness, complaining of persistent left 2nd toe redness and dryness, tolerating diet no nausea, no vomiting, no diarrhea. Review of Systems All other system are reviewed and are negative. Physical Exam Vital Signs: Vital Signs: Last Vital Signs Temp 98.6 F 03/09/24 00:53 Pulse 85 03/09/24 00:53 Resp 18 03/09/24 00:53 BP 139/71 03/09/24 00:53 Pulse Ox 94 03/09/24 00:53 O2 Del Method Room Air 03/09/24 00:53 BMI result Body Mass Index 39.4 Const: Other: General in no acute distress. Anicteric sclera Neck no JVD. CVS regular rate rhythm, Respiratory lungs clear to auscultation, no respiratory distress, no wheeze, no rhonchi. Gastrointestinal abdomen soft, non tender, bowel sounds audible Extremities left lower extremity swelling and hyperemia significantly improved since admission, persistent redness and dried scaly skin left 2nd toe, no fluctuation, no induration. Neuro non focal Skin warm Psych appropriate affect Objective Data Active Medications Acetaminophen (Acetaminophen 325 Mg Tablet) 975 mg PO Q6H PRN PRN Reason: Pain, Mild (Pain Scale 1-3), fever or headache Albuterol Sulfate (Albuterol Sulfate 90 Mcg 8 Gm Inhaler) 2 puff INHALE DAILY PRN PRN Reason: Shortness Of Breath Or Wheezing Amitriptyline HCl (Amitriptyline Hcl 10 Mg Tablet) 20 mg PO BEDTIME [facility] Last Admin: 03/08/24 20:18 Dose: 20 mg Documented By: QI Amlodipine Besylate (Amlodipine Besylate 5 Mg Tablet) 5 mg PO BEDTIME [facility]; Protocol Last Admin: 03/08/24 20:18 Dose: 5 mg Documented By: QI Aspirin (Aspirin Enteric Coated 81 Mg Tablet.) 81 mg PO BEDTIME [facility] Last Admin: 03/08/24 20:18 Dose: 81 mg Documented By: QI Atorvastatin Calcium (Atorvastatin Calcium 10 Mg Tablet) 10 mg PO BEDTIME [facility] Last Admin: 03/08/24 20:18 Dose: 10 mg Documented By: QI Enoxaparin Sodium (Enoxaparin Sodium 40 Mg/0.4 Ml Syringe) 40 mg SUBCUT Q24H [facility] Last Admin: 03/09/24 08:15 Dose: 40 mg Documented By: MICHAEL Fluticasone Propionate (Fluticasone Propionate Nasal 16 Gm Tamms) 1 spray NOSTRIL-B DAILY [facility] Fluticasone/Vilanterol (Fluticasone/Vilanterol 100/25 Blst.W.Dev) 1 puff INHALE RDAILY [facility] Last Admin: 03/09/24 08:15 Dose: Not Given Documented By: MICHAEL Non-Admin Reason: Patient Refused Glucose (Glucose Gel 15 Gm Gel..Gram.) 15 gm PO Q15M PRN; Protocol PRN Reason: per Hypoglycemia Standing Ord. Ceftriaxone Sodium 1 gm/ (Sodium Chloride) 50 mls @ 100 mls/hr IV 2200 [facility] Last Infusion: 03/08/24 21:51 Dose: Infused Documented By: QI Dextrose (D10) 250 mls @ 750 mls/hr IV Q15M PRN; Protocol PRN Reason: per Hypoglycemia Standing Ord. Vancomycin HCl 1,000 mg/ (Sodium Chloride) 270 mls @ 270 mls/hr IV Q12H [facility] Last Infusion: 03/08/24 23:34 Dose: Infused Documented By: YVONNE Insulin Human Lispro (Insulin Lispro 100 Unit/Ml 3 Ml Vial) 0 unit SUBCUT QIDACHS [facility]; Protocol Last Admin: 03/09/24 08:12 Dose: 4 unit Documented By: MICHAEL Pharmacy Consult (Consult Rx Vancomycin Dosing) 1 each MISCELLANE DAILY PRN PRN Reason: Consult order Sodium Chloride (0.9 % Sodium Chloride Flush 3 Ml Syringe) 3 ml IVFLUSH QSHIFT [facility] Last Admin: 03/09/24 08:14 Dose: 3 ml Documented By: MICHAEL Triamcinolone Acetonide (Triamcinolone Acet 0.5 % Cream 15 Gm Tube) 1 appl TOPICAL BID [facility]; Protocol Labs 03/08/24 04:26 03/09/24 05:00 Labs: Laboratory Results - last 24 hr 03/08/24 03/08/24 03/08/24 11:42 13:41 16:57 Estim Creat Clear Calc Estimated GFR POC Glucose 142 H 139 H Lactic Acid 1.2 Random Vancomycin 03/08/24 03/09/24 03/09/24 19:53 05:00 07:32 Estim Creat Clear Calc 72.2 Estimated GFR > 60 POC Glucose 195 H 202 H Lactic Acid Random Vancomycin 03/09/24 03/09/24 08:57 11:14 Estim Creat Clear Calc Estimated GFR POC Glucose 189 H Lactic Acid Random Vancomycin 14.6 L Microbiology Microbiology Results: Microbiology 03/07/24 22:30 Blood Culture - Preliminary Blood - Venous No growth after 24 hours. 03/07/24 22:30 Blood Culture - Preliminary Blood - Venous No growth after 24 hours. Assessment and Plan (1) Lactic acidosis: Status: Acute (2) Left leg cellulitis: Status: Acute Plan Left 2nd toe and left lower extremity cellulitis, failed outpatient treatment. Continue IV ceftriaxone and vancomycin day 2. Keep leg elevated, blood cultures x2 negative times 24 hours Will apply Kenalog cream left 2nd toe If continue to make progress will transition to by mouth antibiotic Acute Lactic acidosis likely secondary to metformin use. No other criteria for sepsis such as tachycardia, hypotension, fever or leukocytosis noted. Hold metformin. Repeat lactic acid normalized. Type 2 diabetes mellitus. Hold metformin , resume glipizide, continue insulin sliding scale and diabetic Essential hypertension. Continue Norvasc, lisinopril and hydrochlorothiazide. Hyperlipidemia. Continue statin. Asthma. Continue inhalers. History of migraines. Continue amitriptyline. DVT prophylaxis: Lovenox Code status: Full Patient will need continued inpatient hospitalization for left 2nd toe and lower extremity cellulitis management with IV antibiotics as the patient failed outpatient treatment. Quality Stroke Does the patient have a stroke diagnosis?: No VTE Prior VTE?: No VTE Risk Level:: Medical - moderate - high VTE Device Contraindication: Treatment Not Indicated VTE Drug Contraindication: N/A - Med Ordered
[2024-03-09 14:24] VITALS: BP 191/98; PULSE 90; RESP 20; TEMP 36.7; O2SAT 98
--- NOTE | 2024-03-09 14:35 | MHC.EDTECH ---
pt voided 6 times and had 1 bowel movement
[2024-03-09] MEDS: Triamcinolone Acet 0.5 % Cream 15 GM TUBE 1 APPL TOPICAL ×2 (15:36→20:26)
[2024-03-09] MEDS: lisinopriL 20 MG TABLET PO (15:36)
[2024-03-09] MEDS: Fluticasone Propionate Nasal 16 GM SPRAY 1 SPRAY NOSTRIL-B (15:38)
[2024-03-09 16:24] VITALS: BP 156/80; PULSE 85; RESP 20; TEMP 36.4; O2SAT 97
[2024-03-09] MEDS: hydroCHLOROthiazide 12.5 MG TABLET PO (16:32)
[2024-03-09 16:34] LABS: Glucose, Whole Blood 213 mg/dL (60-115)
[2024-03-09 20:00] VITALS: BP 144/80; PULSE 83; RESP 16; TEMP 36; O2SAT 96
[2024-03-09 20:12] LABS: Glucose, Whole Blood 250 mg/dL (60-115)
[2024-03-09] MEDS: Aspirin Enteric Coated 81 MG TABLET.DR PO (20:22)
[2024-03-09] MEDS: glipiZIDE XL 10 MG TAB.ER.24 PO (20:22)
[2024-03-09] MEDS: amLODIPine Besylate 5 MG TABLET PO (20:23)
[2024-03-09] MEDS: Atorvastatin Calcium 10 MG TABLET PO (20:23)
[2024-03-09] MEDS: Amitriptyline HCl 10 MG TABLET 20 MG PO (20:25)
--- NOTE | 2024-03-09 20:57 | PC.NURSE ---
pt alert and oriented x4, VSS as noted, Lungs CTA, abdomen soft, n/t, +bs x4, L 2nd toe reddened with dry flaky skin. cream applied as ordered. Pt transferred to [facility] with belongings and denies complaint.
[2024-03-09] MEDS: cefTRIAXone sodium 1 GM in 0.9 % Sodium Chloride 50 ML IV (21:32)
[2024-03-10 03:44] VITALS: BP 147/80; PULSE 90; RESP 16; TEMP 36.1; O2SAT 96
--- NOTE | 2024-03-10 07:24 | P.CDIM_ITS ---
PROVIDER RESPONSE TEXT: To clarify, the appropriate diagnosis supported by the clinical indicators: No, Cellulitis is not related to / associated with / due to DM2 QUERY TEXT: PHYSICIAN'S DOCUMENTATION REQUEST Date of Query: 03/09/2024 07:59 AM EDT Patient Name: OMKAR COYNE Admit Date: 03/08/2024 Dear January Perkins, A review of the medical record indicates additional documentation may be needed. Please review below and update the documentation accordingly. Documentation includes the conditions of DM2 and Cellulitis. Clinical Indicators: Per Hospitalist Event note 03/08/24: past medical history of type 2 diabetes mellitus Left 2nd toe and lower extremity cellulitis, failed outpatient treatment. Continue IV ceftriaxone and vancomycin. Keep leg elevated, blood cultures x2 pending Please clarify the relationship between these conditions: Yes, Cellulitis is related to / associated with / due to DM2 No, Cellulitis is not related to / associated with / due to DM2 Other (explain) Clinically unable to determine (explain) Thank you, Reyna Manzo RN Use of terms such as suspected, likely, concern for, or probable (associated with a specific diagnosi s that is being evaluated, monitored, or treated as if it exists) are acceptable and can be coded in the inpatient se tting, when documented at the time of discharge. Please use your independent medical judgment in providing your response. THIS QUERY IS PART OF THE PERMANENT MEDICAL RECORD
[2024-03-10 08:00] VITALS: BP 135/81; PULSE 81; RESP 13; TEMP 34.7; O2SAT 97
[2024-03-10 08:01] LABS: Creatinine Clr Calc Pharmacy 76.6; Estimated Glomerular Filt Rate > 60
[2024-03-10] MEDS: Insulin Lispro 100 UNIT/ML 3 ML VIAL SUBCUT ×2 (08:08→12:00)
[2024-03-10] MEDS: lisinopriL 20 MG TABLET PO (08:09)
[2024-03-10] MEDS: hydroCHLOROthiazide 12.5 MG TABLET PO (08:09)
[2024-03-10] MEDS: Enoxaparin Sodium 40 MG/0.4 ML SYRINGE SUBCUT (08:09)
[2024-03-10] MEDS: 0.9 % Sodium Chloride Flush 3 ML SYRINGE IVFLUSH (08:09)
[2024-03-10] MEDS: glipiZIDE XL 10 MG TAB.ER.24 PO (08:09)
[2024-03-10] MEDS: Triamcinolone Acet 0.5 % Cream 15 GM TUBE 1 APPL TOPICAL (08:10)
[2024-03-10 08:16] LABS: Glucose, Whole Blood 216 mg/dL (60-115)
[2024-03-10] MEDS: vancomycin HCL 1,000 MG in 0.9 % Sodium Chloride 250 ML 270 MG IV (10:22)
--- NOTE | 2024-03-10 10:45 | PM.DS ---
DS: Providers Provider Date of Service: 03/10/24 Date of admission: 03/08/24 00:06 Primary care physician: Kojo Nielson MD DS: Diagnosis Discharge Diagnosis (1) Lactic acidosis: Status: Acute (2) Left leg cellulitis: Status: Acute DS: Summary Hospital Course Hospital Course: History of presenting illness: Date of Service: 03/08/24 Attending physician on admission: Dana Shelton Chief Complaint: Left leg swelling Harriett Bear is a 73 years old woman with past medical history significant for type 2 diabetes on metformin + glipizide, essential hypertension and hyperlipidemia presents to the emergency department complaining of worsening swelling and redness to the left 2nd toe and leg since . She denied fever, nausea or vomiting. She did not report any headache, chest pain, shortness on breath or dizziness. She denied hurting her left 2nd toe or any trauma to the left leg. She has been taking Keflex (5 pills so far) without improvement of symptoms. In the ED, she was found to have normal vital signs. Blood workup showed no leukocytosis. Lactic acid is elevatedn 3.9 --> 4.2. There are no electrolyte imbalances. Renal function is adequate and LFTs are unremarkable. Left foot x-ray showed no acute fracture, dislocation or left ankle joint effusion. ED tx: NS 1 L bolus, vancomycin 1750 g IV Hospital course: 73-year-old with past medical history significant for type 2 diabetes mellitus, essential hypertension and hyperlipidemia admitted to hospital due to left lower extremity cellulitis, failed outpatient treatment, initially treated with IV ceftriaxone and vancomycin patient remained afebrile with normal WBC count blood cultures x2 returned negative redness and swelling of left lower extremity has significantly improved patient noted to have left 2nd toe swelling hyperemia with dry scaly skin, likely had trauma to left foot that initiated the cellulitis since patient's symptoms are improving she is being discharged home on cefadroxil 500 mg twice daily for 4 more days she is recommended to apply Kenalog cream to left 2nd toe, keep legs elevated and returned to check with worsening symptoms. She was noted to have acute lactic acidosis likely secondary to metformin use she had no other criteria for sepsis lactic acid resolved renal function is stable she is recommended to resume metformin Type 2 diabetes mellitus. Recommend to follow diabetic diet and resume home medication. Essential hypertension. Continue Norvasc, lisinopril and hydrochlorothiazide. Hyperlipidemia. Continue statin. Asthma. No acute exacerbation noted during hospitalization recommend to continue home inhalers. History of migraines. Continue amitriptyline. Time Attestation Discharge Coordination Time (in mins): 38 Quality: Safe Use of Opioids Does Pt have an Active Cancer Diagnosis on the Problem List?: No Quality: Stroke Does the patient have a stroke diagnosis?: No Physical Exam Vital Signs: Vital Signs: Last Vital Signs Temp 94.4 F L 03/10/24 08:00 Pulse 81 03/10/24 08:00 Resp 13 03/10/24 08:00 BP 135/81 03/10/24 08:00 Pulse Ox 97 03/10/24 08:00 O2 Del Method Room Air 03/10/24 08:00 BMI result Body Mass Index 39.4 Const: Other: General in no acute distress. Anicteric sclera Neck no JVD. CVS regular rate rhythm, Respiratory lungs clear to auscultation, no respiratory distress, no wheeze, no rhonchi. Gastrointestinal abdomen soft, non tender, bowel sounds audible Extremities left lower extremity swelling and hyperemia resolved, persistent swelling dorsum of left foot and ankle, left 2nd toe redness and swelling ,scaly skin improving, no fluctuation, no induration. Neuro non focal Skin warm Psych appropriate affect DS: Data Data Completed and Pending Labs on day of discharge: Laboratory Results - last 24 hr 03/07/24 03/09/24 03/09/24 21:16 11:14 16:28 Hold Purple Top Creatinine Estim Creat Clear Calc Estimated GFR POC Glucose 189 H 213 H Lactic Acid F/U @ 2Hr 4.2 H* 03/09/24 03/10/24 03/10/24 20:09 07:14 08:01 Hold Purple Top SEE NOTE Creatinine 0.82 Estim Creat Clear Calc 76.6 Estimated GFR > 60 POC Glucose 250 H 216 H Lactic Acid F/U @ 2Hr Preliminary micro results at discharge 03/07/24 22:30 Blood Culture - Preliminary Blood - Venous No growth after 48 hours. 03/07/24 22:30 Blood Culture - Preliminary Blood - Venous No growth after 48 hours. Discharge Plan Discharge Anticipated Discharge Date/Time: 03/10/24 10:36 Patient Disposition: Home, Self-Care Discharge Diagnosis: Acute left leg cellulitis Referrals: Kojo Nielson MD [Primary Care Provider] - 1 Week Discharge Medications: New cefadroxil 500 mg capsule 500 mg PO BID Qty: 8 0RF Continued albuterol sulfate 90 mcg/actuation HFA aerosol inhaler 2 puff inhalation DAILY PRN (Reason: Shortness Of Breath Or Wheezing) fluticasone propionate 50 mcg/actuation spray,suspension 1 spray intranasal DAILY fluticasone propion-salmeterol [Advair Diskus] 100-50 mcg/dose blister with device 1 ea inhalation BID atorvastatin 10 mg tablet 10 mg PO BEDTIME lisinopril-hydrochlorothiazide 20-12.5 mg tablet 1 tab PO BEDTIME metformin 500 mg tablet 1,000 mg PO BID amitriptyline 10 mg tablet 20 mg PO BEDTIME amlodipine 5 mg tablet 5 mg PO BEDTIME aspirin [Adult Low Dose Aspirin] 81 mg tablet,delayed release (DR/EC) 81 mg PO BEDTIME glipizide 5 mg tablet extended release 24hr 10 mg PO BID Discharge Orders: Discharge Order (Routine); Ordered 03/10/24 Ordered By: January Perkins Diet: Diabetic diet Activity on Discharge: As tolerated Stand Alone Forms: Patient Portal Discharge page Print Language: Sammarinese Care Plan Goals: Take by mouth antibiotic 1 tablet twice daily for 4 more days, keep leg elevated apply Kenalog cream twice daily for 10-14 days Health Concerns: Diabetes follow diabetic diet Plan of Treatment: Outpatient follow-up with primary care physician call for appointment Assessment: As above
--- NOTE | 2024-03-10 10:48 | MHC.CM.PN ---
IMM 03/08/24 Per MD rounds Patient is discharged today. DP Home self care. Patient has arranged for transport home.
[2024-03-10 11:40] LABS: Glucose, Whole Blood 217 mg/dL (60-115)
== END 2024-03-10 12:41 | disposition home or self-care (01) | DRG 603 ==
LOC: HO.ED 22:36 → HO.EDOVER 03-08 00:11 → HO.S3 03-09 13:37
PROVIDERS: Admitting Provider Internal Medicine; Emergency Provider Emergency Medicine; PCP Family Medicine; Visit Provider Hospitalist
DX: L03.116 Cellulitis of left lower limb (principal); E87.21 Acute metabolic acidosis; J45.909 Unspecified asthma, uncomplicated; G43.909 Migraine, unspecified, not intractable, without status migrainosus; E66.8 Other obesity; Z68.39 Body mass index [BMI] 39.0-39.9, adult; T38.3X5A Adverse effect of insulin and oral hypoglycemic [antidiabetic] drugs, initial encounter; E11.9 Type 2 diabetes mellitus without complications; I10 Essential (primary) hypertension; E78.5 Hyperlipidemia, unspecified; Z71.3 Dietary counseling and surveillance; Z87.891 Personal history of nicotine dependence; Z79.51 Long term (current) use of inhaled steroids; Z79.82 Long term (current) use of aspirin; Z79.84 Long term (current) use of oral hypoglycemic drugs; Z79.899 Other long term (current) drug therapy
CPT/HCPCS: 36415; 73630; 80053; 80202; 82565; 82947; 83605; 85025; 87040; 93971; 99285; J0696; J1650; J3370

== ENCOUNTER → 2024-03-08 00:06 | Outpatient (BNV) | payer MEDICARE, SELFPAY | PROVIDERS: Admitting Provider Internal Medicine; Emergency Provider Internal Medicine; PCP Family Medicine; Visit Provider Internal Medicine | DX: E87.20 Acidosis, unspecified (principal); L03.116 Cellulitis of left lower limb | CPT/HCPCS: 99223; 99232; 99239; 99499 ==

== ENCOUNTER 2025-05-22 08:48 | Emergency (ER) | payer MEDICARE, MEDICAID, SELFPAY ==
--- NOTE | ~2025-05-22 | XR_ITS ---
EXAMINATION: XR FOOT, RIGHT CLINICAL INFORMATION: fall, pain COMPARISON: None available. TECHNIQUE: AP, lateral, and oblique views of the right foot. FINDINGS: Acute minimally displaced intra-articular fracture of the proximal medial aspect, proximal phalanx of the hallux . Mild overlying soft tissue swelling. No additional fracture or focal bony abnormality. No malalignment. Joint spaces are preserved. There is a pes planus. There are moderate plantar and small dorsal calcaneal spurs. Fixation hardware noted in the medial and lateral malleoli. XR/XR foot RT min 3V IMPRESSION: 1. Acute minimally displaced intra-articular fracture of the proximal medial aspect, proximal phalanx of the hallux. 2. Pes planus deformity. 3. Moderate plantar and small dorsal calcaneal spurs. Electronically signed by: Perfecto Espinoza MD 05/22/2025 09:29 AM EDT
[2025-05-22 08:52] VITALS: BP 175/87; PULSE 102; RESP 16; TEMP 36.4; O2SAT 95; BMI 35.8
--- NOTE | 2025-05-22 08:52 | ED_ITS ---
HPI - General Adult General Chief complaint: Extremity Injury, Lower Stated complaint: R foot injury Time Seen by Provider: 05/22/25 08:52 Source: patient Mode of arrival: ambulatory Limitations: no limitations History of Present Illness ED Provider: Amee Nguyen PA-C HPI narrative: Patient is a 74 year old assigned female at with a history of DM, HTN, asthma, HLD, and migraines presenting to the emergency department today with right great toe pain. Patient states that on 05/18/2025 she tripped up stairs and injured her right great toe. Patient states that she is also concerned that it is red / swollen because she had a previous episode of cellulitis that forced her lactic acid to be elevated and caused her admission. Patient states that she would feel significantly better if we confirmed her lactic acid isn't elevated and she isn't infected. Patient denies any head strike with the incident, loss of consciousness with the incident, or any other complaints at this time. Onset (ago): day(s) (4) Related Data Home Medications ?Medication ?Instructions ?Recorded ?Confirmed amitriptyline 10 mg tablet 20 mg PO BEDTIME 10/02/20 0 03/08/24 amlodipine 5 mg tablet 5 mg PO BEDTIME 10/02/2005/24 aspirin 81 mg tablet,delayed 81 mg PO BEDTIME 10/02/20 03/08/24 release (Adult Low Dose Aspirin) atorvastatin 10 mg tablet 10 mg PO BEDTIME 10/02/20 lisinopril 20 1 tab PO BEDTIME 10/02/20 mg-hydrochlorothiazide 12.5 mg tablet metformin 500 mg tablet 1,000 mg PO BID 10/02/2005/24 albuterol sulfate 90 mcg/actuation 2 puff inhalation D AILY PRN 05/28/21 03/08/24 aerosol inhaler Shortness Of Breath Or Wheez ing fluticasone propionate 50 1 spray intranasal DAILY 03/08/24 mcg/actuation nasal spray,suspension glipizide 5 mg tablet, extended 10 mg PO BID 03/04/24 03/08/24 release 24 hr fluticasone 100 mcg-salmeterol 50 1 ea inhalation BID 03/08/24 03/08/24 mcg/dose blistr powdr for inhalation (Advair Diskus) Previous Rx's ?Medication ?Instructions ?Recorded cefadroxil 500 mg capsule 500 mg PO BID #8 caps cephalexin 500 mg capsule 500 mg PO Q6H 7 days #28 cap s 05/22/25 Allergies Allergy/AdvReac Type Severity Reaction Status Date / Time erythromycin base Allergy Mild Nausea and Verified 05/22/25 08:55 Vomiting oxycodone (From Percocet) Allergy Unknown Nausea and Verified 05/22/25 08:55 Vomiting Review of Systems 2 Constitutional: Constitutional: Reports as per HPI Eyes: Eyes: Reports as per HPI ENT: Reports as per HPI Cardiovascular: Cardiovascular: Reports as per HPI Respiratory: Respiratory: Reports as per HPI Gastrointestinal: Gastrointestinal: Reports as per HPI Genitourinary: Genitourinary: Reports as per HPI Musculoskeletal: Musculoskeletal: Reports as per HPI Integumentary/Breasts: Skin/Breast: Reports as per HPI Neurologic: Reports as per HPI Psychiatric: Psychiatric: Reports as per HPI Endocrine: Endocrine: Reports as per HPI Hematologic/Lymphatic: Hematologic/Lymphatic: Reports as per HPI Allergic/Immunologic: Allergic/Immunologic: Reports as per HPI [facility]LY [facility] Past Medical History Attestation statement: The following information was validated with the patient. Source: old records reviewed and nursing notes reviewed Medical History PONV (postoperative nausea and vomiting) DM type 2 (diabetes mellitus, type 2) Migraines Asthma HTN (hypertension) Hyperlipidemia Surgical History Hx of colonoscopy History of open reduction and internal fixation (ORIF) procedure Social History Social History Household Members: None Housing: House Are you a primary patient care nursing assistant to a significant other at home: No Do you presently have visiting nurse or other home services: No Alcohol intake: former Patient Tobacco Use Status: Former Tobacco user Tobacco use type: Cigarette Smoked in Last 30 Days: No Second Hand Smoke Exposure: No Use of substances other than those prescribed or required for medical reasons: No Advance Directives: Yes Advance Directives on File: Yes Advance Directives Date on File: 05/22/25 service: No Physical Exam ED Vital Signs: Vital Signs - 24 hr 05/22/25 08:52 05/22/25 12:03 Temperature 97.5 F 98.0 F Pulse Rate 102 H 89 Respiratory Rate 16 18 Blood Pressure 175/87 H 135/85 Pulse Oximetry 95 98 Oxygen Delivery Method Room Air Room Air BMI result Body Mass Index 35.8 Const General: cooperative, no acute distress, alert and awake Nutritional Appearance: well nourished Orientation/consciousness: patient oriented x3 HENMT Head: Yes normal to inspection and Yes atraumatic Ears: hearing grossly normal bilaterally and external ears normal General nose exam: Normal external nose present, no nasal discharge noted and no epistaxis Face and sinus: Yes normal facial exam, No abrasion and No laceration Mouth: Normal oral and palatal mucosa present, no drooling and no muffled voice Eyes General: appearance normal, both eyes and all related structures Periorbital: periorbital findings normal Eyelids: Yes eyelids normal Conjunctivae: conjunctivae normal Pupils: Equal, round and reactive pupils present EOM: EOMs intact bilaterally Neck Neck: Yes normal visual inspection and Yes full ROM Resp Effort & Inspection: normal respiratory effort and able to speak in complete sentences Neuro General: patient oriented x3, moves all extremities and CN's II-XI intact bilaterally Cranial nerves: Yes Equal, round and reactive pupils present Cognition (Neuro): normal cognition Extrem Other: General: Yes full ROM and Yes capillary refill normal Psych Appearance: grossly normal Mental Status: mental status grossly normal Affect: normal affect Attitude: cooperative Thought process: Normal thought process present Thought content: Normal thought content present Insight: Good insight present (Psych) Medications Administered Discontinued Medications Generic Name Dose Route Start Last Admin Trade Name Edmundoq PRN Reason Stop Dose Admin Ceftriaxone Sodium 1 gm 05/22/25 11:11 05/22/25 12:03 Ceftriaxone Sodium 1 Gm Vial IVPUSH 05/22/25 11:12 1 gm ONCE ONE Administration Sodium Chloride 1,000 mls @ 999 mls/hr 05/22/25 11:15 05/22/25 13:10 Ns IV 05/22/25 12:15 Infused .Q1H1M MABEL Infusion Sodium Chloride 1,000 mls @ 999 mls/hr 05/22/25 11:30 05/22/25 13:10 Ns IV 05/22/25 12:30 Infused .Q1H1M MABEL Infusion Procedures Orthopedic Splinting/Casting R great toe: Side: right Lower Extremity Injury Location: toe Lower Extremity Immobilizer: boot orthosis Medical Decision Making Medical Decision Making [facility] Narrative: Patient is a 74 year old assigned female at with a history of DM, HTN, asthma, HLD, and migraines presenting to the emergency department today with right great toe pain. Patient's physical exam was as noted in the physical exam portion of this note. Patient's blood work showed an initial lactic acid of 3.4 with a repeat of 3.4 and CRP of 2.45. I am suspicious the patient's lactic acid is elevated secondary to her Metformin use. However, given the patient's concern of infection and her history of diabetes - will treat for possible super imposed cellulitis. Patient's right foot x-ray showed an acute minimally displaced intra-articular fracture of the proximal medial aspect of the proximal phalanx of the hallux. I spoke with the orthopedic team who confirmed putting the patient in a walking boot and having her follow up on an outpatient basis with podiatry. I explained my physical exam findings as well as all test results to the patient. I answered all questions asked by the patient. Patient's right foot was placed in a walking boot, without incident. Patient's PMS was intact prior to and after walking boot placed. I stressed the importance of the patient taking her medication as directed (either prescribed or as the over the counter packaging recommends). I stressed the importance of the patient following up with her primary care provider and podiatry. I stressed the importance of the patient returning to the emergency department immediately if her symptoms were to worsen or if she were to develop any dizziness, shortness of breath, difficulty breathing, chest pain, blurry vision, loss of vision, nausea, vomiting, abdominal pain, fever, chills, back pain, or any other complaints. Patient verbalized agreement and understanding with this treatment plan and discharge. Differential Diagnosis Differential Diagnoses: The differential diagnosis associated with the presentation includes Foot fracture Toe fracture Cellulitis Contusion Admission/Observation Consideration of admission/observation: Escalation of care including admission/observation considered Patient would have been admitted to the hospital had her work up had any findings where hospital admission was appropriate and her clinical presentation warranted hospital admission. Consult Healthcare Provider Management of the patient was discussed with: Vice President Tax (spoke with the orthopedic team as noted in the MDM Rationale portion of this note. ) Lab Data [facility] Lab Attestation statement: I reviewed the patient's lab results. My interpretation of these results are in the MDM Rationale portion of this note. 05/22/25 10:05/22/25 10:29 Labs: Lab Results 05/22/25 05/22/25 05/22/25 Range/Units 10: 13: 13:55 WBC 9.6 (4.8-10.8) X10*3/uL RBC 4.60 (4.20-5.50) X10*6/uL Hgb 12.4 (12.0-16.0) g/dl Hct 36.2 L (37.0-47.0) % MCV 78.7 L (80.0-98.0) fL MCH 27.0 (27.0-33.0) pg MCHC 34.3 (31.0-35.0) g/dl RDW 13.7 (11.0-16.0) % Plt Count 273 (160-400) X10*3/uL MPV 9.4 (9.4-12.3) fL Immature Gran % (Auto) 0.4 (0.0-0.4) % Neut % (Auto) 56.6 (45-73) % Lymph % (Auto) 32.0 (20-40) % Reagan % (Auto) 9.3 (2-11) % Eos % (Auto) 1.3 (0-4) % Baso % (Auto) 0.4 (0-2) % Lymph # (Auto) 3.1 (1.2-4.9) X10*3/uL Reagan # (Auto) 0.9 (0.1-1.2) X10*3/uL Eos # (Auto) 0.1 (0.0-0.4) X10*3/uL Baso # (Auto) 0.0 (0.0-0.2) X10*3/uL Abs Immat Gran (auto) 0.04 H (0.00-0.03) X10*3/uL Absolute Neuts (auto) 5.4 (2.0-8.3) x10*3/uL Absolute Nucleated RBC 0.000 (0.0-0.012) X10*3/uL Nucleated RBC % (auto) 0.0 (0.0-0.2) /100WBC ESR 13 (0-20) MM/HR Sodium 140 (135-145) mmol/L Potassium 4.0 (3.3-5.1) mmol/L Chloride 103 (96-108) mmol/L Carbon Dioxide 26 (22-29) mmol/L Anion Gap 15 (12-20) BUN 28 H (9-16) mg/dL Creatinine 1.14 (0.5-1.4) mg/dL Estim Creat Clear Calc 51.5 Estimated GFR 47 POC Glucose 82 (60-115) mg/dL Random Glucose 166 H (60-115) mg/dL Lactic Acid 3.4 H* (0.5-2.0) mmol/L Lactic Acid F/U @ 2Hr 3.4 H* (0.5-2.0) mmol/L Calcium 9.5 D (8.4-10.2) mg/dL Total Bilirubin 0.4 (0.0-1.0) mg/dL AST 19 (5-31) U/L ALT 23 (0-31) U/L Alkaline Phosphatase 62 (39-117) U/L C-Reactive Protein 2.45 H (< or = 0.50) mg/dL Total Protein 6.9 (6.5-8.0) g/dL Albumin 4.3 (3.5-5.0) g/dL Independent Interpretation I performed an independent interpretation of an: Plain X-Ray Interpretation: My interpretation is in agreement with the radiologist's impression of this imaging study. L Reason for Exam: fall, pain EXAMINATION: XR FOOT, RIGHT CLINICAL INFORMATION: fall, pain COMPARISON: None available. TECHNIQUE: AP, lateral, and oblique views of the right foot. FINDINGS: Acute minimally displaced intra-articular fracture of the proximal medial aspect, proximal phalanx of the hallux . Mild overlying soft tissue swelling. No additional fracture or focal bony abnormality. No malalignment. Joint spaces are preserved. There is a pes planus. There are moderate plantar and small dorsal calcaneal spurs. Fixation hardware noted in the medial and lateral malleoli. XR/XR foot RT min 3V IMPRESSION: 1. Acute minimally displaced intra-articular fracture of the proximal medial aspect, proximal phalanx of the hallux. 2. Pes planus deformity. 3. Moderate plantar and small dorsal calcaneal spurs. Electronically signed by: Perfecto Espinoza MD 05/22/2025 09:29 AM EDT RP Dictated By: Perfecto Espinoza MD Signed By: Electronically signed by Perfecto Espinoza MD 05/22/25 0943 Radiology Impression Discussion of test interpretation with radiology: I have reviewed the radiologist's reading. Discharge Plan Discharge Clinical Impression: Fracture of toe, Cellulitis Patient Disposition: Home, Self-Care Instructions: Toe Fracture (ED), Cellulitis (ED), Walking Boot (ED) Additional Instructions: Your right great toe is broken - please keep your walking boot on and follow up with the podiatry team. Your lactic acid was elevated but I am suspicious this is secondary to your metformin us and NOT any other process. You were concerned about infection - so I have prescribed you an antibiotic for possible cellulitis. IF you are prescribed home medications and/or you are taking over the counter medications at home - it is very important you continue to do so as prescribed / directed unless told otherwise. Follow up with your primary care provider. Return to the emergency department immediately if your symptoms worsen or if you develop any numbness, tingling, dizziness, shortness of breath, difficulty breathing, chest pain, blurry vision, loss of vision, nausea, vomiting, abdominal pain, fever, chills, back pain, or any other complaints. Please see the information below about our Patient Portal. If you are not yet enrolled in the [facility] Patient Portal, you will receive an enrollment email invitation following your visit to any [facility] setting. You may also self-enroll in the Patient Portal by visiting our website: [email or web address] The following information is required to access the Patient Portal: - Your [facility] Medical Record Number - Your personal home email address (must match what is in your electronic medical record, Registration staff can assist with this) - Name - Date of Capabilities of the Patient Portal: - Message some providers - View upcoming appointments - Access your health summary, medical history, and visit history - View current conditions and allergies - View procedure and lab results - View your medications, including guidelines, side effects, and precautions - Complete pre-appointment questionnaires requested by your provider - Ready summary reports of your office visits and procedures To access the Patient Portal Mobile [employer], follow these directions: - Search [employer] in the [employer] Store or Google Play Store - Download the [employer] - Search for [facility] - Enter your login/password Prescriptions: New cephalexin 500 mg capsule 500 mg PO Q6H 7 Days Qty: 28 0RF No Action albuterol sulfate 90 mcg/actuation HFA aerosol inhaler 2 puff inhalation DAILY PRN (Reason: Shortness Of Breath Or Wheezing) fluticasone propionate 50 mcg/actuation spray,suspension 1 spray intranasal DAILY fluticasone propion-salmeterol [Advair Diskus] 100-50 mcg/dose blister with device 1 ea inhalation BID cefadroxil 500 mg capsule 500 mg PO BID Qty: 8 0RF atorvastatin 10 mg tablet 10 mg PO BEDTIME lisinopril-hydrochlorothiazide 20-12.5 mg tablet 1 tab PO BEDTIME metformin 500 mg tablet 1,000 mg PO BID amitriptyline 10 mg tablet 20 mg PO BEDTIME amlodipine 5 mg tablet 5 mg PO BEDTIME aspirin [Adult Low Dose Aspirin] 81 mg tablet,delayed release (DR/EC) 81 mg PO BEDTIME glipizide 5 mg tablet extended release 24hr 10 mg PO BID Referrals: [facility] Podiatry [Provider Group, Podiatry] Referral Note: Call to establish and follow up with the podiatry team for your toe fracture. Kojo Nielson MD [Primary Care Provider, Internal Medicine] Print Language: Moldovan
[2025-05-22 10:45] LABS: MANUAL DIFF FLAG NO
[2025-05-22 10:49] LABS: Hematocrit 36.2 % (37.0-47.0); Hemoglobin 12.4 g/dl (12.0-16.0); Imm Gran Abs Auto 0.04 X10*3/uL (0.00-0.03); Imm Gran Pct Auto 0.4 % (0.0-0.4); Lymphocytes Absolute Auto 3.1 X10*3/uL (1.2-4.9); Mean Corpuscular HGB Conc 34.3 g/dl (31.0-35.0); Mean Corpuscular Hemoglobin 27.0 pg (27.0-33.0); Mean Corpuscular Volume 78.7 fL (80.0-98.0); NRBC Abs Auto 0.000 X10*3/uL (0.0-0.012); NRBC Pct Auto 0.0 /100WBC (0.0-0.2); Platelet Count 273 X10*3/uL (160-400); Red Blood Count 4.60 X10*6/uL (4.20-5.50); White Blood Count 9.6 X10*3/uL (4.8-10.8)
[2025-05-22 11:03] LABS: Alanine Aminotransferase 23 U/L (0-31); Albumin Level 4.3 g/dL (3.5-5.0); Alkaline Phosphatase 62 U/L (39-117); Anion Gap 15 (12-20); Aspartate Amino Transferase 19 U/L (5-31); Blood Urea Nitrogen 28 mg/dL (9-16); Calcium 9.5 mg/dL (8.4-10.2); Carbon Dioxide 26 mmol/L (22-29); Chloride 103 mmol/L (96-108); Creatinine Clr Calc Pharmacy 51.5; Estimated Glomerular Filt Rate 47; Potassium 4.0 mmol/L (3.3-5.1); Sodium 140 mmol/L (135-145); Total Protein 6.9 g/dL (6.5-8.0)
--- NOTE | 2025-05-22 11:08 | MHC.CM.ED ---
Received notification from Klarissa in registration that patient requested to complete HCP. Met with patient. HCP completed, signed and witnessed. Original given to patient. Copy placed in chart.
[2025-05-22 12:03] VITALS: BP 135/85; PULSE 89; RESP 18; TEMP 36.7; O2SAT 98
[2025-05-22 12:43] LABS: Reflex Lactate? Lactic Acid Added
--- NOTE | 2025-05-22 13:16 | MHC.EDTECH ---
Repeat Lactic Acid blood test being delayed d/t pending fluid completion per RN
[2025-05-22 13:52] LABS: ~Lactic Acid-LAB USE ONLY 3.4 mmol/L (0.5-2.0)
[2025-05-22 13:59] LABS: Glucose, Whole Blood 82 mg/dL (60-115)
[2025-05-22 15:09] VITALS: BP 135/85; PULSE 89; RESP 18; TEMP 36.7; O2SAT 98
[2025-05-22 15:31] LABS: Reflex Lactate? 2 Y
== END 2025-05-22 15:09 | disposition home or self-care (01) ==
PROVIDERS: Physician Assistant Medical; Emergency Provider Emergency Medicine; PCP Family Medicine
DX: S92.411A Displaced fracture of proximal phalanx of right great toe, initial encounter for closed fracture (principal); I10 Essential (primary) hypertension; W22.8XXA Striking against or struck by other objects, initial encounter; W18.49XA Other slipping, tripping and stumbling without falling, initial encounter; Y93.89 Activity, other specified; Y92.89 Other specified places as the place of occurrence of the external cause; Y99.8 Other external cause status; Z79.899 Other long term (current) drug therapy
CPT/HCPCS: 36415; 73630; 80053; 82947; 83605; 85025; 85652; 86140; 96361; 96374; 99284; 99285; J0696

== ENCOUNTER → 2025-05-22 09:05 | Outpatient (BNV) | payer MEDICARE, MEDICAID, SELFPAY | PROVIDERS: PCP Family Medicine; Visit Provider Radiology Diagnostic Radiology | DX: S92.411A Displaced fracture of proximal phalanx of right great toe, initial encounter for closed fracture (principal); M21.41 Flat foot [pes planus] (acquired), right foot; M77.31 Calcaneal spur, right foot | CPT/HCPCS: 73630 ==